=== PATIENT | female | born 1995 | race Hispanic/Latino ===

== ENCOUNTER 2018-03-25 20:08 | Emergency (ER) | payer SELFPAY ==
[2018-03-25 20:23] VITALS: BMI 26.2
[2018-03-25 20:34] VITALS: RESP 17; TEMP 97.6; O2SAT 98
--- NOTE | 2018-03-25 21:09 | ED PDOC ---
Arrival/HPI <Ron Frankel - Last Filed: 03/25/18 22:40> - General Historian: Patient - History of Present Illness Time/Duration: Other (2 months) Symptom Course: Worsening (2 weeks) Context: Home <Saul Zhou - Last Filed: 03/25/18 22:53> - General Chief Complaint: Lower Extremity Problem/Injury Time Seen by Provider: 03/25/18 21:05 - History of Present Illness Narrative History of Present Illness (Text): 03/25/18 21:06 This 22 yo female with pmh HIV+, asthma, presents to this ED c/o left dorsal foot pain that radiates to her left white x 2 months. Patient stated pain has worsen last 2 weeks. Patient stated she had a foot sprain, and neuropathy after a work related injury x 2 months. Patient denies recent trauma, calf pain , leg swelling, sob, cp, abdominal pain, skin rash, erythema, bruises, weakness , paresthesias, or abnormal gait. (Saul Zhou) Past Medical History - Provider Review Nursing Documentation Reviewed: Yes - Past History Past History: No Previous - Past Medical History Past Medical History: No Previous - Cardiac Hx Cardiac Disorders: No - Pulmonary Hx Respiratory Disorders: Yes Hx Asthma: Yes - Neurological Hx Neurological Disorder: No - HEENT Hx HEENT Disorder: No - Renal Hx Renal Disorder: No - Endocrine/Metabolic Hx Endocrine Disorders: No - Hematological/Oncological Hx Blood Disorders: Yes Hx AIDS: Yes (HIV POSITIVE) - Integumentary Hx Dermatological Disorder: No - Musculoskeletal/Rheumatological Hx Musculoskeletal Disorders: No - Gastrointestinal Hx Gastrointestinal Disorders: No - Genitourinary/Gynecological Hx Genitourinary Disorders: No - Psychiatric Hx Depression: No Hx Emotional Abuse: No Hx Physical Abuse: No Hx Substance Use: No - Past Surgical History Past Surgical History: No Previous - Surgical History Hx Section: Yes - Suicidal Assessment Feels Threatened In Home Enviroment: No <Saul Zhou - Last Filed: 03/25/18 22:53> Family/Social History - Physician Review Nursing Documentation Reviewed: Yes Family/Social History: Other (noncontributory) Smoking Status: Never Smoked Hx Alcohol Use: No Hx Substance Use: No <Saul Zhou - Last Filed: 03/25/18 22:53> Allergies/Home Meds <Ron Frankel - Last Filed: 03/25/18 22:40> <Saul Zhou - Last Filed: 03/25/18 22:53> Allergies/Adverse Reactions: Allergies acetaminophen [From Percocet] Allergy (Verified 03/25/18 20:21) VOMITING ceftriaxone Allergy (Verified 03/25/18 20:21) URTICARIA oxycodone Allergy (Verified 03/25/18 20:21) VOMITING peanut Allergy (Verified 03/25/18 20:21) ANAPHYLAXIS sulfamethoxazole [From Bactrim] Allergy (Verified 03/25/18 20:20) RASH trimethoprim [From Bactrim] Allergy (Verified 03/25/18 20:20) RASH Review of Systems - Review of Systems Constitutional: Normal. absent: Fatigue, Weight Change, Fevers, Night Sweats Eyes: Normal ENT: Normal Respiratory: Normal Cardiovascular: Normal Gastrointestinal: Normal Genitourinary Female: Normal Musculoskeletal: Other ((+) left foot pain) Skin: Normal Neurological: Normal Endocrine: Normal Hemo/Lymphatic: Normal Psychiatric: Normal <Saul Zhou Olinda - Last Filed: 03/25/18 22:53> Physical Exam Temperature: Afebrile Blood Pressure: Normal Pulse: Regular Respiratory Rate: Normal Appearance: Positive for: Well-Appearing, Non-Toxic, Comfortable Pain Distress: None Mental Status: Positive for: Alert and Oriented X 3 - Systems Exam Head: Present: Atraumatic, Normocephalic Pupils: Present: PERRL Extroacular Muscles: Present: EOMI Conjunctiva: Present: Normal Mouth: Present: Moist Mucous Membranes Neck: Present: Normal Range of Motion Respiratory/Chest: Present: Clear to Auscultation, Good Air Exchange. No: Respiratory Distress, Accessory Muscle Use Cardiovascular: Present: Regular Rate and Rhythm, Normal S1, S2. No: Murmurs Abdomen: No: Tenderness, Distention, Peritoneal Signs Back: Present: Normal Inspection Upper Extremity: Present: Normal Inspection, Normal ROM, NORMAL PULSES, Neurovascularly Intact, Capillary Refill < 2s. No: Cyanosis, Edema Lower Extremity: Present: Normal Inspection, NORMAL PULSES, Normal ROM, Tenderness (Pain is out of proportion for a normal foot/ankle exam), Neurovascularly Intact, Capillary Refill < 2 s. No: Edema, CALF TENDERNESS, Florencia's Sign, Swelling, Erythema, Deformity, Temperature Abnormalties Neurological: Present: GCS=15, CN II-XII Intact, Speech Normal, Motor Func Grossly Intact, Normal Sensory Function, Normal Cerebellar Funct, Gait Normal, Memory Normal Skin: Present: Warm, Dry, Normal Color. No: Rashes Psychiatric: Present: Alert, Oriented x 3, Normal Insight, Normal Concentration <Saul Zhou P - Last Filed: 03/25/18 22:53> Vital Signs Temp Pulse Resp BP Pulse Ox 03/25/18 20:31 97.6 F 97 H 17 109/75 98 Medical Decision Making <Ron Frankel - Last Filed: 03/25/18 22:40> Re-evaluation Time: 22:51 Reassessment Condition: Re-examined, Improved <Saul Zhou P - Last Filed: 03/25/18 22:53> ED Course and Treatment: 03/25/18 22:50 Re-evaluation. Patient feels better. Discussed results and plan with patient who expresses understanding. All questions answered and there is agreement with the plan to discharge home with instructions. Patient stable for discharge. Return if symptoms persist or worsen. (Saul Zhou P) - RAD Interpretation Narrative RAD Interpretations (Text): 03/25/18 22:43 Foot x-rays: No Fx (Saul Zhou P) Radiology Orders: 03/25/18 21:24 FOOT LEFT 3 VIEWS ROUTINE [RAD] Stat - Medication Orders Current Medication Orders: Discontinued Medications Ibuprofen (Motrin Tab) 400 mg PO STAT STA Stop: 03/25/18 21:26 Last Admin: 03/25/18 22:21 Dose: 400 mg MAR Pain/Vitals Document 03/25/18 22:21 OCS (Rec: 03/25/18 22:21 OCS [facility] [place]) Pain Reassessment Is This A Pain ReAssessment? No Sleep Is patient sleeping during reassessment? 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 <Ron Frankel - Last Filed: 03/25/18 22:40> Disposition/Present on Arrival <Ron Frankel - Last Filed: 03/25/18 22:40> - Present on Arrival Any Indicators Present on Arrival: No History of DVT/PE: No History of Uncontrolled Diabetes: No Urinary Catheter: No History of Decub. Ulcer: No History Surgical Site Infection Following: None - Disposition Have Diagnosis and Disposition been Completed?: Yes Disposition Time: 22:51 Patient Plan: Discharge <Saul Zhou - Last Filed: 03/25/18 22:53> - Disposition Diagnosis: Foot pain, left Disposition: HOME/ ROUTINE Condition: GOOD Additional Instructions: Call clinic doctor for follow up visit in 1-2 days. Take medication as instructed. return to emergency if symptoms worsen. Prescriptions: Ibuprofen [Motrin] 400 mg PO Q8H PRN #20 tab PRN Reason: Pain, Severe (8-10) Referrals: [facility] [Outside] - Follow up with primary [facility] [Outside] - Follow up with primary [facility] [Outside] - Follow up with primary Forms: [employer] (Albanian), WORK NOTE
[2018-03-25 23:17] VITALS: BP 110/69; PULSE 89
--- NOTE | 2018-03-26 10:00 | RAD ---
PROCEDURE: Left Foot Radiographs. HISTORY: pain COMPARISON: None. FINDINGS: BONES: Normal. No fracture. JOINTS: Normal. SOFT TISSUES: Normal. OTHER FINDINGS: None. IMPRESSION: Normal left foot radiographs.
== END 2018-03-25 23:12 | disposition home or self-care (01) ==
LOC: ED 20:08
DX: M79.672 Pain in left foot (principal)